=== PATIENT | female | born 1965 | race Caucasian/White ===

== ENCOUNTER 2020-05-10 10:06 | Outpatient (CLI) | payer BC, SELFPAY ==
--- NOTE | 2020-05-10 10:30 | MM_ITS ---
WS: [id number] BILATERAL DIGITAL SCREENING MAMMOGRAPHY WITH CAD CLINICAL INFORMATION: screenine HISTORY: Screening mammogram. No current complaints. COMPARISON: TECHNIQUE: Bilateral CC and MLO views. FINDINGS: The breasts are composed of heterogeneous fibroglandular density tissue, which can limit the detectio n of small underlying mass lesions. 6 mm asymmetric density along the posterior nipple line left leona st best seen on the cc view anterior depth. RECOMMEND FURTHER EVALUATION WITH LEFT DIAGNOSTIC MAMMOGR APHY SPOT COMPRESSION VIEWS AND ULTRASOUND. Right breast is unchanged. MM/[place] [id number] IMPRESSION: BI-RADS: 0-Incomplete: Need additional imaging evaluation FOLLOW UP: Need Additional Imaging
== END 2020-05-10 10:07 | disposition home or self-care (01) ==
LOC: RADSHAW 10:11
PROVIDERS: PCP Electrodiagnostic Medicine; Visit Provider Obstetrics & Gynecology
DX: Z12.31 Encounter for screening mammogram for malignant neoplasm of breast (principal)
CPT/HCPCS: 77067

== ENCOUNTER 2020-05-25 12:36 | Outpatient (CLI) | payer BC, SELFPAY ==
--- NOTE | 2020-05-25 13:00 | MM_ITS ---
WS: [id number] LEFT DIGITAL MAMMOGRAPHY WITH CAD CLINICAL INFORMATION: DX 6mm asymmetric density COMPARISON: May 10, 2020 TECHNIQUE: 2 views of the left breast were obtained. FINDINGS: The left breast is composed of heterogeneous fibroglandular density tissue, which can limit the detec tion of small underlying mass lesions. Punctate calcifications. Again seen is the 6 mm asymmetric den sity along the posterior nipple line anterior depth. Ultrasound is pending. ULTRASOUND BREAST LEFT TECHNIQUE: Ultrasound left breast focused area of concern. CLINICAL INFORMATION: DX 6mm asymmetric density COMPARISON: None. FINDINGS: Ultrasound left breast at the 9:00 position near the areola. Areas of incidental ductal ectasia. Smal l cyst or focal ductal dilatation measuring 4 mm. No evidence of pathologic mass or lesion. No lesion s to target for biopsy. Recommend return to annual screening mammography. MM/[place] [id number] IMPRESSION: BI-RADS: 2-Benign FOLLOW UP: 1 Year Follow-up Recommend return to annual screening mammography.
--- NOTE | 2020-05-25 13:30 | US_ITS ---
WS: [id number] LEFT DIGITAL MAMMOGRAPHY WITH CAD CLINICAL INFORMATION: DX 6mm asymmetric density COMPARISON: May 10, 2020 TECHNIQUE: 2 views of the left breast were obtained. FINDINGS: The left breast is composed of heterogeneous fibroglandular density tissue, which can limit the detec tion of small underlying mass lesions. Punctate calcifications. Again seen is the 6 mm asymmetric den sity along the posterior nipple line anterior depth. Ultrasound is pending. ULTRASOUND BREAST LEFT TECHNIQUE: Ultrasound left breast focused area of concern. CLINICAL INFORMATION: DX 6mm asymmetric density COMPARISON: None. FINDINGS: Ultrasound left breast at the 9:00 position near the areola. Areas of incidental ductal ectasia. Smal l cyst or focal ductal dilatation measuring 4 mm. No evidence of pathologic mass or lesion. No lesion s to target for biopsy. Recommend return to annual screening mammography. US/US breast LT limited* IMPRESSION: BI-RADS: 2-Benign FOLLOW UP: 1 Year Follow-up Recommend return to annual screening mammography.
== END 2020-05-25 12:37 | disposition home or self-care (01) ==
LOC: RADSHAW 12:38
PROVIDERS: PCP Electrodiagnostic Medicine; Visit Provider Obstetrics & Gynecology
DX: N64.89 Other specified disorders of breast (principal)
CPT/HCPCS: 76642; 77065

== ENCOUNTER 2020-08-23 08:20 | Outpatient (CLI) | payer BC, SELFPAY ==
--- NOTE | 2020-08-23 08:46 | XR_ITS ---
WS: [id number] Cervical spine, 3 views, 08/23/2020 Clinical Data: NECK PAIN/CHRONIC BACK PAIN/MUSCLE SPASM Comparison: None. Findings: No compression fractures are seen. The disc heights are normal. There is no prevertebral so ft tissue swelling. The odontoid is unremarkable. The soft tissues of the neck and the lung apices ar e normal. There is a small calcification of the anterior inferior aspect of the C6 vertebral body. XR/XR cervical spine 3V* [id number] Impression: Negative cervical spine.
--- NOTE | 2020-08-23 08:46 | XR_ITS ---
WS: [id number] Lumbar spine, 3 views, 08/23/2020 Clinical Data: CHRONIC BACK PAIN/MUSCLE SPASM/RIGHT SCIATICA Comparison: None. Findings: No compression fractures or subluxation is seen. No disc space narrowing is seen. The transverse proc esses and SI joints are normal. XR/XR lumbar spine 2-3V* [id number] Impression: Negative lumbar spine.
== END 2020-08-23 08:21 | disposition home or self-care (01) ==
PROVIDERS: PCP Electrodiagnostic Medicine; Visit Provider Electrodiagnostic Medicine
DX: M54.41 Lumbago with sciatica, right side (principal); M54.2 Cervicalgia; G89.29 Other chronic pain
CPT/HCPCS: 72040; 72100

== ENCOUNTER → 2021-02-14 08:25 | Outpatient (BNVA) | payer OTHER, SELFPAY | PROVIDERS: PCP Electrodiagnostic Medicine; Visit Provider Obstetrics & Gynecology | DX: Z12.4 Encounter for screening for malignant neoplasm of cervix (principal); Z12.39 Encounter for other screening for malignant neoplasm of breast | CPT/HCPCS: 88175 ==

== ENCOUNTER 2021-05-12 10:39 | Outpatient (CLI) | payer OTHER, SELFPAY ==
--- NOTE | 2021-05-12 11:00 | MM_ITS ---
WS: [id number] BILATERAL DIGITAL SCREENING MAMMOGRAPHY WITH CAD CLINICAL INFORMATION: Z12.39 - Encounter for other screening for malignant neop... HISTORY: Screening mammogram. No current complaints. COMPARISON: May 25, 2020 TECHNIQUE: Bilateral CC and MLO views. FINDINGS: The breasts are composed of heterogeneous fibroglandular density tissue, which can limit the detectio n of small underlying mass lesions. Stable 6 mm asymmetric density along the posterior nipple line le ft breast anterior depth. No suspicious mass, asymmetry, calcifications, or architectural distortion. No evidence of malignancy. MM/[place] [id number] IMPRESSION: BI-RADS: 2-Benign FOLLOW UP: 1 Year Follow-up Recommend return to annual screening mammography.
== END 2021-05-12 10:40 | disposition home or self-care (01) ==
LOC: RADSHAW 10:41
PROVIDERS: PCP Electrodiagnostic Medicine; Visit Provider Obstetrics & Gynecology
DX: Z12.31 Encounter for screening mammogram for malignant neoplasm of breast (principal)
CPT/HCPCS: 77067

== ENCOUNTER 2022-05-17 08:01 | Outpatient (CLI) | payer OTHER, SELFPAY ==
--- NOTE | 2022-05-17 08:07 | MM_ITS ---
WS: [id number] Bilateral screening 3D tomosynthesis digital mammogram, 05/17/2022 Clinical Data: SCREENING Comparison: 05/12/2021, 05/25/2020, 05/10/2020, 04/22/2019, 04/15/2018, 04/13/2017, 09/06/2015, 09/02/2014, , 07/16/2012, 07/10/2011, 07/05/2010, 07/01/2029. Findings: The breast parenchymal pattern shows ingenious density. No spiculated masses or clustered calcificati ons are seen. There are no secondary signs of carcinoma. MM/[place] [id number] Impression: 1. Negative bilateral mammogram unchanged. 2. Recommend annual screening mammograms. BIRADS: 1-Negative FOLLOW UP: 1 Year Follow-up The CAD coat checker was used.
== END 2022-05-17 08:02 | disposition home or self-care (01) ==
LOC: RAD 08:06
PROVIDERS: PCP Electrodiagnostic Medicine; Visit Provider Obstetrics & Gynecology
DX: Z12.31 Encounter for screening mammogram for malignant neoplasm of breast (principal)
CPT/HCPCS: 77063; 77067

== ENCOUNTER 2023-03-19 13:11 | Outpatient (CLI) | payer OTHER, SELFPAY ==
--- NOTE | 2023-03-19 13:44 | XR_ITS ---
WS: [id number] DEXA (DUAL ENERGY X-RAY ABSORPTIOMETRY) Bone mineral density was performed using a [employer] machine. HISTORY: POSTMENOPAUSAL COMPARISON: None available. Lumbar spine BMD (L1-L4): 1.011 g/cm2 T score: -1.4 Z score: -0.6 Total hip BMD: Left: 0.851 g/cm2. T score: -1.2 Z score: -0.6 Right: 0.853 g/cm2. T score: -1.2 Z score: -0.6 10 year probability of a major osteoporotic fracture is 9.1%. XR/XR DEXA axial skeleton* [id number] IMPRESSION: OSTEOPENIA based upon the WHO classification for females.
== END 2023-03-19 13:12 | disposition home or self-care (01) ==
LOC: RAD 13:12
PROVIDERS: PCP Electrodiagnostic Medicine; Visit Provider Electrodiagnostic Medicine
DX: Z78.0 Asymptomatic menopausal state (principal); M85.80 Other specified disorders of bone density and structure, unspecified site
CPT/HCPCS: 77080

== ENCOUNTER → 2023-04-05 08:12 | Outpatient (BNVA) | payer OTHER, SELFPAY | PROVIDERS: PCP Electrodiagnostic Medicine; Visit Provider Podiatrist Foot & Ankle Surgery | DX: S93.601A Unspecified sprain of right foot, initial encounter; W22.8XXA Striking against or struck by other objects, initial encounter | CPT/HCPCS: 73630 ==

== ENCOUNTER 2023-05-22 12:52 | Outpatient (CLI) | payer OTHER, SELFPAY ==
--- NOTE | 2023-05-22 12:56 | MM_ITS ---
WS: [id number] BILATERAL 3D TOMOSYNTHESIS DIGITAL SCREENING MAMMOGRAPHY WITH CAD CLINICAL INFORMATION: SCREENING HISTORY: Screening mammogram. No current complaints. COMPARISON: 2021 TECHNIQUE: Bilateral CC and MLO views. FINDINGS: The breasts are composed of heterogeneous fibroglandular density tissue, which can limit the detectio n of small underlying mass lesions. No suspicious mass, asymmetry, calcifications, or architectural d istortion. No evidence of malignancy. Incidental punctate calcifications. IMPRESSION: MM/[place] [id number] BI-RADS: 2-Benign FOLLOW UP: 1 Year Follow-up Recommend return to annual screening mammography.
== END 2023-05-22 12:53 | disposition home or self-care (01) ==
PROVIDERS: PCP Electrodiagnostic Medicine; Visit Provider Electrodiagnostic Medicine
DX: Z12.31 Encounter for screening mammogram for malignant neoplasm of breast (principal)
CPT/HCPCS: 77063; 77067

== ENCOUNTER 2024-06-10 08:14 | Outpatient (CLI) | payer OTHER, SELFPAY ==
--- NOTE | 2024-06-10 08:18 | MM_ITS ---
WS: [id number] VIEWS: MLO and CC views both breasts. 3D digital tomosynthesis is also included in this exam. Comparison made with prior exam of 07/01/2009, 07/05/2010, 07/10/2011, 07/16/2012, 07/23/2013, 014, 09/06/2015, 04/13/2017, 04/15/2018, 04/22/2019, 05/10/2020, 05/12/2021, 05/17/2022, 05/22/2023.. Findings: The breasts are heterogeneously dense, which may obscure small masses. Stable appearing nodular densities noted bilaterally. MM/MM scr BI tomosynthesis [id number] Impression: BI-RADS: 2 - Benign FOLLOW-UP: 1 Year Follow-up This mammogram was also analyzed by the Computer Aided Detection System R2 Imag e [employer] Machine [employer].
== END 2024-06-10 08:15 | disposition home or self-care (01) ==
LOC: RAD 08:14
PROVIDERS: PCP Electrodiagnostic Medicine; Visit Provider Nurse Practitioner Women's Health
DX: Z12.31 Encounter for screening mammogram for malignant neoplasm of breast (principal); R92.333 Mammographic heterogeneous density, bilateral breasts
CPT/HCPCS: 77063; 77067

== ENCOUNTER → 2025-04-10 12:46 | Outpatient (BNVA) | payer OTHER, SELFPAY | PROVIDERS: PCP Electrodiagnostic Medicine; Visit Provider Nurse Practitioner Women's Health | DX: Z01.419 Encounter for gynecological examination (general) (routine) without abnormal findings (principal); Z79.890 Hormone replacement therapy; M85.80 Other specified disorders of bone density and structure, unspecified site | CPT/HCPCS: 82306; 82670; 87624 ==

== ENCOUNTER 2025-06-11 12:26 | Outpatient (CLI) | payer OTHER, SELFPAY ==
--- NOTE | 2025-06-11 12:40 | MM_ITS ---
WS: [id number] BILATERAL 3D TOMOSYNTHESIS DIGITAL SCREENING MAMMOGRAPHY WITH CAD CLINICAL INFORMATION: Z12.31 - Encounter for screening mammogram for malignant ... HISTORY: Screening mammogram. No current complaints. COMPARISON: 2023 TECHNIQUE: Bilateral CC and MLO views. FINDINGS: The breasts are composed of heterogeneous fibroglandular density tissue, which can limit the detection of small underlying mass lesions. No suspicious mass, asymmetry, calcifications, or architectural distortion. No evidence of malignancy. A few incidental punctate calcifications. Ovoid nodular densities anterior RIGHT breast with long-term stability previously demonstrated to represent breast cysts. MM/MM [facility] tomosynthesis [id number] IMPRESSION: DENSITY: The breasts are heterogeneously dense, which may obscure small masses. BI-RADS: 2 - Benign FOLLOW UP: 1 Year Follow-up Recommend return to annual screening mammography.
--- NOTE | 2025-06-11 13:00 | XR_ITS ---
WS: [id number] SCREENING DEXA SCAN [employer] CLINICAL INFORMATION: Z78.0 - Asymptomatic menopausal state COMPARISON: 2022 FINDINGS: The L1-L4 bone mineral density measures 1.068 g/cm2. This corresponds to a T score score of -0.9 and Z score of 0.2. Left femoral neck bone mineral density measures 0.834 g/cm2. This corresponds to a T score of -1.4 and Z score of -0.5. Right femoral neck bone mineral density measures 0.859 g/cm2. This corresponds to a T score -1.2of and Z score of -0.3. Mean femoral neck bone mineral density measures 0.846 g/cm2. This corresponds to a T score of -1.3 and Z score of -0.4. XR/XR DEXA axial skeleton* [id number] IMPRESSION: Normal bone mineralization lumbar spine. Osteopenia femoral necks Patient's FRAX calculated 10 year probability for major osteoporotic fracture i s 9.6% and osteoporotic hip fracture is 1.2%. Bone mineral density lumbar spine increased 5.6% Bone mineral density femoral necks decreased -0.7%
== END 2025-06-11 12:27 | disposition home or self-care (01) ==
LOC: RAD 12:28
PROVIDERS: PCP Electrodiagnostic Medicine; Visit Provider Nurse Practitioner Women's Health
DX: Z12.31 Encounter for screening mammogram for malignant neoplasm of breast (principal); Z13.820 Encounter for screening for osteoporosis; Z78.0 Asymptomatic menopausal state; M85.80 Other specified disorders of bone density and structure, unspecified site; R92.333 Mammographic heterogeneous density, bilateral breasts; R92.323 Mammographic fibroglandular density, bilateral breasts; R92.1 Mammographic calcification found on diagnostic imaging of breast; N64.89 Other specified disorders of breast; M85.88 Other specified disorders of bone density and structure, other site
CPT/HCPCS: 77063; 77067; 77080

== ENCOUNTER → 2025-08-25 15:25 | Outpatient (BNVA) | payer OTHER, SELFPAY | PROVIDERS: PCP Electrodiagnostic Medicine; Visit Provider Nurse Practitioner Women's Health | DX: R87.615 Unsatisfactory cytologic smear of cervix (principal); M85.851 Other specified disorders of bone density and structure, right thigh; M85.852 Other specified disorders of bone density and structure, left thigh; Z79.890 Hormone replacement therapy | CPT/HCPCS: 82670; 88175 ==